=== PATIENT | male | born 1940 | race Caucasian/White ===

== ENCOUNTER 2017-10-08 10:39 | Observation (INO) | payer MEDICARE ==
[~2017-10-08] VITALS: Ht 177.8 cm; Wt 76.2 kg
[2017-10-08 11:36] LABS: BASOPHILS % (AUTO) 0.2 % (0.0-5.0); EOSINOPHILS % (AUTO) 0.4 % (0.0-8.0); HEMATOCRIT 41.5 % (42-54); LYMPHOCYTES % (AUTO) 18.7 % (21.0-51.0); MEAN CORPUSCULAR HEMOGLOBIN 29.7 pg (27.0-33.0); MEAN CORPUSCULAR HGB CONC 33.8 g/dL (32.0-36.0); NEUTROPHILS % (AUTO) 73.7 % (40.0-77.0); PLATELET COUNT (AUTO) 191 K/uL (130-400); RED BLOOD CELL COUNT(AUTO) 4.72 MIL/uL (4.50-6.20); RED CELL DISTRIBUTION WIDTH 13.7 % (11.0-15.5)
[2017-10-08 11:42] LABS: CREATININE 1.2 mg/dL (0.5-1.5); POTASSIUM 3.8 mmol/L (3.5-5.1)
[2017-10-08 11:49] LABS: ALBUMIN 2.8 g/dL (3.5-5.0); BILIRUBIN,TOTAL 0.8 mg/dL (0.2-1.0); TOTAL PROTEIN, SERUM 7.7 g/dL (6.0-8.3)
[2017-10-08 11:55] LABS: INR 0.87 (0.85-1.15); PROTHROMBIN TIME 9.2 SEC (9.6-11.6)
[2017-10-08] MEDS ORDERED: FUROSEMIDE 10 MG/ML 4ML VIAL ONE (12:53)
[2017-10-08 14:01] LABS: APPEARANCE,URINE Clear (CLEAR); BILIRUBIN,URINE Negative (NEGATIVE); COLOR,URINE Yellow (YELLOW); GLUCOSE, URINE (UA) Negative (NEGATIVE); KETONES,URINE Negative (NEGATIVE); LEUKOCYTE ESTERASE ,URINE Negative (NEGATIVE); NITRATE,URINE Negative (NEGATIVE); OCCULT BLOOD,URINE Negative (NEGATIVE); PROTEIN,URINE POS 2+ (NEGATIVE)
[2017-10-08 14:13] LABS: BACTERIA,URINE Rare /HPF (None Seen); RBC,URINE 0-1 /HPF (0-1); SQUAMOUS EPITHELIAL CELL,UR Rare /LPF (0-2); WBC,URINE 0-1 /HPF (0-1)
[2017-10-08] MEDS ORDERED: AZITHROMYCIN 500MG+NS 250ML 250 ML IV ONE (14:14)
[2017-10-08] MEDS ORDERED: CEFTRIAXONE SODIUM 1 GM ONE (14:14)
[2017-10-08] MEDS ORDERED: LIDOCAINE HCL-MPF 1% 2ML VIAL ONE (14:14)
[2017-10-08 23:32] VITALS: BP 154/71
[2017-10-09] VITALS (7 sets, daily range): BP systolic 154–178; BP diastolic 70–83
[2017-10-09] MEDS ORDERED: GUAIFENESIN-DM 200/20 MG 10 ML PO PRN (00:15)
[2017-10-09] MEDS ORDERED: METF500T6 PO (00:17)
[2017-10-09] MEDS ORDERED: ATEN100T PO (00:17)
[2017-10-09] MEDS ORDERED: QUIN40TA19 PO (00:17)
[2017-10-09] MEDS ORDERED: GLYB5TAB8 PO (00:17)
[2017-10-09] MEDS ORDERED: ATOR40TA71 PO (00:17)
[2017-10-09] MEDS ORDERED: IPRATROPIUM/ALBUTEROL SULFATE 3 ML SOLUTION IH ONE (00:34)
[2017-10-09 06:21] LABS: CREATINE KINASE MB 0.6 ng/mL (0.5-3.6); CREATINE KINASE, TOTAL 209 U/L (21-232); MYOGLOBIN 138 ng/mL (10-92); TROPONIN I < 0.04 ng/mL (0.00-0.06)
[2017-10-09] MEDS: IPRATROPIUM/ALBUTEROL SULFATE 3 ML SOLUTION IH SCH ×4 (07:08→23:37)
[2017-10-09] MEDS: ATENOLOL 50 MG TABLET PO SCH (10:16)
[2017-10-09] MEDS: LISINOPRIL 40 MG TABLET PO SCH (10:17)
[2017-10-09 11:43] LABS: HEMATOCRIT 38.7 % (42-54); MEAN CORPUSCULAR HGB CONC 33.7 g/dL (32.0-36.0); MEAN CORPUSCULAR VOLUME 89.1 fL (79-99); PLATELET COUNT (AUTO) 199 K/uL (130-400); RED BLOOD CELL COUNT(AUTO) 4.34 MIL/uL (4.50-6.20); RED CELL DISTRIBUTION WIDTH 13.7 % (11.0-15.5); WHITE BLOOD COUNT (AUTO) 17.5 K/uL (4.8-10.8)
[2017-10-09] MEDS: INSULIN HUMULIN R 100 UNIT/ML 3ML SQ SCH ×3 (12:28→20:35)
[2017-10-09] MEDS: LEVOFLOXACIN 500 MG/D5W 100 ML 100 ML IV SCH (12:28)
[2017-10-09 12:29] LABS: B-TYPE NATRIURETIC PEPTIDE 546 pg/mL (0-100)
[2017-10-09] MEDS ORDERED: HYDRALAZINE HCL 20 MG/ML VIAL ONE (17:28)
[2017-10-09] MEDS: METFORMIN HCL 500 MG TABLET PO SCH (17:32)
[2017-10-09] MEDS: GLYBURIDE 5 MG TABLET PO SCH (17:32)
[2017-10-09] MEDS ORDERED: HYDRALAZINE HCL 20 MG/ML VIAL IM PRN (17:45)
[2017-10-09] MEDS ORDERED: ATORVASTATIN CALCIUM 40 MG TABLET PO SCH (21:00)
[2017-10-10 04:00] VITALS: BP 150/74
[2017-10-10] MEDS: INSULIN HUMULIN R 100 UNIT/ML 3ML SQ SCH ×2 (06:17→11:34)
[2017-10-10] MEDS: IPRATROPIUM/ALBUTEROL SULFATE 3 ML SOLUTION IH SCH ×2 (06:41→11:11)
[2017-10-10 08:00] VITALS: BP 147/80
[2017-10-10] MEDS: METFORMIN HCL 500 MG TABLET PO SCH (08:58)
[2017-10-10] MEDS: LISINOPRIL 40 MG TABLET PO SCH (08:59)
[2017-10-10] MEDS: GLYBURIDE 5 MG TABLET PO SCH (08:59)
[2017-10-10] MEDS: ATENOLOL 50 MG TABLET PO SCH (08:59)
[2017-10-10] MEDS ORDERED: ALBU8.5H8 IH (10:37)
[2017-10-10] MEDS ORDERED: AZIT500T4 PO (10:37)
[2017-10-10] MEDS: LEVOFLOXACIN 500 MG/D5W 100 ML 100 ML IV SCH ×2 (10:53→12:03)
[2017-10-10 11:00] VITALS: BP 142/89
== END 2017-10-10 12:50 | disposition home or self-care (01) ==
LOC: EDH 10:39 → EDHIP 14:46 → 3BH 22:11
PROVIDERS: ADMIT Family Medicine; ATTEND Family Medicine
DX: J20.9 Acute bronchitis, unspecified (principal); E11.9 Type 2 diabetes mellitus without complications; E78.5 Hyperlipidemia, unspecified; I10 Essential (primary) hypertension; I25.10 Atherosclerotic heart disease of native coronary artery without angina pectoris; Z95.1 Presence of aortocoronary bypass graft
CPT/HCPCS: 36415 ×2; 71045; 71046; 80053; 81001; 82550 ×2; 82553; 82948 ×6; 83874; 83880 ×2; 84484 ×3; 85025; 85027; 85610; 85730; 87040; 87804 ×2; 93005 ×3; 93306; 93971; 94640 ×8; 94664; 96372 ×2; 99285; G0378 ×46; J0360 ×2; J0456; J0696; J1815 ×3; J1940; J1956 ×2; J3490